=== PATIENT | male | born 1930 | race Caucasian/White ===

== ENCOUNTER 2019-05-17 21:15 | Observation (INO) ==
[2019-05-18] MEDS ORDERED: Naloxone 0.4 MG/ML INJ IVP PRN (03:29)
[2019-05-18 04:02] LABS: Basophils % 0.5 %; Eosinophils # 0.2 K/mcL (0.0-0.6); Eosinophils % 2.5 %; Hematocrit 32.4 % (37.5-50.1); Hemoglobin 11.1 g/dL (12.9-16.9); Immature Granulocytes % 0.3 % (0-4); Lymphocytes # 1.2 K/mcL (0.6-4.6); Lymphocytes % 20.6 %; Mean Corpuscular HGB Conc 34.3 g/dL (31.6-35.5); Mean Corpuscular Hemoglobin 30.1 pg (28.0-33.3); Mean Corpuscular Volume 87.8 fL (83.0-100.0); Mean Platelet Volume 10.7 fL (9.4-12.4); Monocytes # 0.7 K/mcL (0.0-1.3); Monocytes % 11.4 %; Neutrophils # 3.9 K/mcL (1.6-8.9); Platelet Count 189 K/mcL (140-400); Red Blood Count 3.69 M/mcL (4.19-5.50); Red Cell Distribution Width 12.6 % (11.5-14.5); Segmented Neutrophils % 64.7 %
[2019-05-18 04:10] LABS: Prothrombin Time 11.9 Seconds (9.4-12.1)
[2019-05-18 04:12] LABS: Activated Partial Thrombo Time 30.9 Seconds (26.0-36.0)
[2019-05-18 04:24] LABS: Alanine Aminotransferase 15 Units/L (7-52); Albumin 3.7 g/dL (3.5-5.7); Albumin/Globulin Ratio 1.8 (1.1-2.2); Alkaline Phosphatase 54 Units/L (34-104); Aspartate Amino Transferase 24 Units/L (13-39); BUN/Creatinine Ratio 20 (6-26); Bilirubin,Total 0.4 mg/dL (0.3-1.0); Blood Urea Nitrogen 18 mg/dL (8-23); Calcium 8.7 mg/dL (8.6-10.3); Carbon Dioxide 24 mEq/L (23-29); Chloride 106 mEq/L (98-107); Globulin 2.1 g/dL (2.4-3.5); Glucose 91 mg/dL (70-105); Magnesium 2.2 mg/dL (1.6-2.6); Osmolality,Calculated 289 (280-300); Potassium 3.5 mEq/L (3.5-5.1); Sodium 139 mEq/L (136-145); Total Protein 5.8 g/dL (6.4-8.9); eGFR For African Americans > 60 (> 60); eGFR For Non-African Americans > 60 (> 60)
[2019-05-18] MEDS ORDERED: Ondansetron 4 MG/2 ML VIAL IVP PRN (07:17)
[2019-05-18] MEDS ORDERED: Acetaminophen 325 MG TABLET PO PRN (07:17)
--- NOTE | 2019-05-18 07:31 | Internal Med History&Physical ---
Date of Encounter: 05/18/19 Time of Encounter: 07:21 Internal Medicine - H&P: HPI Chief complaint: Elevated trop Admitted From: Emergency Dept History of present illness: Eusebio Schumacher is an 88 M w hx HFpEF, HTN, HLD, PrCa s/p prostatectomy, who presented to cardiology appt after being referred for subacute progressive WHALEY and occasional dizziness with standing. As part of this workup, outpatient labs on 05/17 revealed a troponin of 0.06, unknown baseline but presumed to be normal, for which he was sent to local ED. At the time he received phone call for elevated troponin, he was shoveling in his yard without any chest pain or shortness of breath. Denies symptoms at present including no SOB, orthopnea, CP, N/V, diaphoresis, neck/jaw/shoulder/back pain, or increased edema. He does report that he's noticed fatigue over about the last 6 months, saying he feels like he has less energy, which he states has started to impact his ability to do all the activities he enjoys and work he does. Is able to walk stairs without difficulty. In the ED, vitals T 97, HR 60, RR 18, BP 120/60. CXR without acute process. 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 Labs remarkable only for persistent trop 0.06. Case discussed between ED and Cardio who rec'd xfer to [facility] for cardio consultation and potential stress test. TTE done in 01/2019 with moderate diastolic dysfunction, mild AoR, moderate AoS. PFTs done in 02/2019 were unremarkable. Past medical, surgical, social, and family histories reviewed and updated as below. Past Med Surg Social Fam HX - Past Medical History Medical history: cancer, hypertension Additional medical history: prostate CA Psychiatric history: no psych history - Past Surgical History Surgical History: prostatectomy, other Additional surgical history: cyst removed from spine - Social History Smoking Status: Former smoker Smokeless Tobacco Status: No Alcohol use: none Drug use: none - Family History Mother Living Status: Age at : 70 Hx Family Endocrine Disorder: Yes (dm) Sister Living Status: Age at : 75 Hx Family Endocrine Disorder: Yes (dm) Father Living Status: Age at : 60 Internal Medicine - H&P: Meds Ascorbate Calcium/Bioflavonoid [Lyric-C 1,000 mg Tablet] 1 each PO 05/17/19 [History] Calcium Carb, Citrate/Vit D3 [Calcium + D3 ER Tablet] 1 each PO 05/17/19 [History] Cholecalciferol (D-3) [Vitamin D] 1,000 unit PO DAILY 05/17/19 [History] Ferrous Sulfate [Iron] 325 mg PO 05/17/19 [History] Furosemide [Lasix] 20 mg PO DAILY 05/17/19 [History] Lisinopril-HCTZ 20-12.5 [Prinzide 20-12.5] 1 each PO 05/17/19 [History] Rosuvastatin Calcium [Crestor] 10 mg PO 05/17/19 [History] Allergy/AdvReac Type Severity Reaction Status Date / Time No Known Allergies Allergy Verified 09/27/18 18:36 All Systems PM: A 10-system review of systems was performed and is negative for pertinent findings except as documented above in the HPI. - Constitutional Vitals: Temp Pulse Resp BP Pulse Ox 97.9 F 61 17 122/65 96 05/18/19 04:02 05/18/19 04:02 05/18/19 04:02 05/18/19 04:02 05/18/19 04:02 Exam: General: NAD, AAOx3, good eye contact, well appearing, elderly Head: Atraumatic, normocephalic. Face symmetric Eyes: EOMI, sclerae anicteric ENT: Mucous membranes moist. Normal oral mucosa and dentition. Trachea midline. Thoracic: No visible chest wall deformities. Normal breath sounds b/l, no wheezing or crackles Cardio: regular rate and rhythm, does have obvious systolic murmur. Abdomen: Soft, nontender, nondistended Extremities: Warm, well perfused. DP pulses 2+ b/l. No clubbing, cyanosis. No edema Skin: Intact. No rashes, bruises, or ulcers Neuro: Awake, fully oriented. Good memory, concentration, attention. Speech fluent. CN II-XII grossly intact. Strength 5/5 in b/l UE and LE. Mild intention tremor noted RUE during handshake Internal Med - H&P Results - Labs CBC & Chem 7: 05/18/19 03:52 05/18/19 03:52 Labs: Short CBC 05/18/19 Range/Units 03:52 WBC 6.0 (4.3-11.1) K/mcL Hgb 11.1 L (12.9-16.9) g/dL Hct 32.4 L (37.5-50.1) % Plt Count 189 (140-400) K/mcL Neutrophils # 3.9 (1.6-8.9) K/mcL BMP 05/18/19 03:52 Sodium 139 Potassium 3.5 Chloride 106 Carbon Dioxide 24 BUN 18 Creatinine 0.89 Glucose 91 Calcium 8.7 Cardiac Enzymes 05/18/19 Range/Units 03:52 Troponin I 0.05 H* (< 0.04) ng/mL Liver Function 05/18/19 Range/Units 03:52 Total Bilirubin 0.4 (0.3-1.0) mg/dL AST 24 (13-39) Units/L ALT 15 (7-52) Units/L Alkaline Phosphatase 54 (34-104) Units/L Albumin 3.7 (3.5-5.7) g/dL - Summary of Assessment and Plan Summary of Assessment and Plan: Eusebio Schumacher is an 88 M w hx HFpEF, CAD, HTN, HLD, PrCa s/p prostatectomy, who p/w asymptomatic troponin elevation in context of subacute mild exertional dyspnea. Elevated troponin: ECG w/o acute changes, pt asymptomatic but does have risk factors for CAD and ECG suggests old infarct - tele - Cardio consult to direct further eval HFpEF: not overloaded, home lasix 20 HTN: controlled, holding home hctz/lisinopril until further eval per cardio HLD: home crestor PPx: ambulate Tele: yes Activity: ambulate FEN: NPO then cardiac eventually, no MIVF Lines: PIV Consults: Cardio Code: Full Dispo: obs for elevated trop, awaiting cardio consult, anticipate homegoing later today or tomorrow
--- NOTE | 2019-05-18 11:24 | Cardiology Consult Note ---
<Sheri Decker - Last Filed: 05/18/19 11:46> Date of Encounter: 05/18/19 Time of Encounter: 09:00 Assessment and Plan (1) Elevated troponin I level Current Visit: No Status: Acute Per cardiology: -Troponins 0.06 x2, 0.05 in the setting of moderate diastolic dysfunction, aortic stenosis. Unknown baseline troponins. -Denies chest pain, shortness of breath, fatigue. -ECG with no acute ischemic changes noted. -TTE 01/2019 with LVEF 60-65%, mild concentric LVH, moderate diastolic dysfunction, mild AR, moderate , mild-moderate MR, no SWMA. -Denies previous history of CAD. -Reports able to push mow grass, garden without symptoms. -Possible demand ischemia in the setting of diastolic dysfunction, aortic stenosis. -Will repeat TTE. -Discussed with patient regarding stress test, however patient wishes to complete in outpatient setting. -Further recommendations pending TTE. (2) Aortic stenosis Current Visit: Yes Status: Chronic Per cardiology: -Known moderate per TTE 01/2019. -Will repeat TTE. Qualifiers: Cardiac valve disease etiology: etiology unspecified Qualified Code(s): I35.0 - Nonrheumatic aortic (valve) stenosis Discussion w patient/family: The assessment and plan as outlined above was discussed with the patient who expressed understanding and agreement. All questions were answered. Thank you for involving us in the care of your patient. Please call with any questions. Discussed and reviewed with . History of Present Illness Consult date: 05/18/19 Requesting physician: Jose Resendez Consult reason: elevated troponin Chief complaint: abnormal labs History of present illness: Mr. Schumacher is a 88 year old male with a relevant past medical history of HLD, prostate cancer, who presented to [facility] with abnormal labs. 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 Patient states he was called with abnormal labs and recommended for ER evaluation. Patient denies symptoms. Denies chest pain. Denies shortness of breath or fatigue. States he was outside gardening when he was called with abnormal labs. Patient states two days ago, he push mowed his yard without symptoms. Patient denies current symptoms. Past Med Surg Social Fam HX - Past Medical History Attestation: Yes The following information was validated with the patient. Source: patient, old records reviewed Medical history: cancer, hypertension Additional medical history: prostate CA Psychiatric history: no psych history - Past Surgical History Surgical History: prostatectomy, other Additional surgical history: cyst removed from spine - Social History Smoking Status: Former smoker Smokeless Tobacco Status: No Alcohol use: none Drug use: none - Family History Mother Living Status: Age at : 70 Hx Family Endocrine Disorder: Yes (dm) Sister Living Status: Age at : 75 Hx Family Endocrine Disorder: Yes (dm) Father Living Status: Age at : 60 Medications and Allergies Ascorbate Calcium/Bioflavonoid [Lyric-C 1,000 mg Tablet] 1 each PO 05/17/19 [History] Calcium Carb, Citrate/Vit D3 [Calcium + D3 ER Tablet] 1 each PO 05/17/19 [History] Cholecalciferol (D-3) [Vitamin D] 1,000 unit PO DAILY 05/17/19 [History] Ferrous Sulfate [Iron] 325 mg PO 05/17/19 [History] Furosemide [Lasix] 20 mg PO DAILY 05/17/19 [History] Lisinopril-HCTZ 20-12.5 [Prinzide 20-12.5] 1 each PO 05/17/19 [History] Rosuvastatin Calcium [Crestor] 10 mg PO 05/17/19 [History] Allergy/AdvReac Type Severity Reaction Status Date / Time No Known Allergies Allergy Verified 09/27/18 18:36 All Systems Review: The remainder of the systems were reviewed and are negative - Cardiovascular Cardiovascular: as per HPI Physical Examination Vital Signs, Last 4 Hours Temp Pulse Resp BP Pulse Ox 05/18/19 08:06 97.7 F 66 18 123/76 97 General: Conversant, No Apparent Distress HEENT: Atraumatic, Normocephaly, Mucus Membranes Moist Neck: No JVD, Normal carotid pulses Cardiac: Reg Rate and Rhythm, Normal S1 and S2, Other (Systolic murmur noted. ) Lungs: Normal Breath Sounds, No Wheeze, Rales, Rhonchi Neuro: Alert and responsive, No focal deficits noted Abdomen: Soft, Non-Tender Skin: No rashes noted on visualized skin Musculoskeletal: No Chest Wall Tenderness Extremities: No Clubbing, No Cyanosis, No Edema, Normal Pulses Results 05/18/19 03:52 05/18/19 03:52 Lab Results Active Medications Acetaminophen (Tylenol) 650 mg PO Q6HR PRN PRN Reason: Mild Pain/Fever Stop: 11/17/19 07:18 Naloxone HCl (Narcan) 0.4 mg IVP Q2MPRN PRN PRN Reason: SEE COMMENTS Stop: 11/17/19 03:30 Ondansetron HCl (Zofran) 4 mg IVP Q8HR PRN PRN Reason: Nausea And Vomiting Stop: 11/17/19 07:18 Laboratory Tests 05/17/19 05/17/19 05/18/19 11:42 19:38 03:52 Hgb Creatinine Troponin I 0.06 H* 0.06 H* 0.05 H* 05/18/19 05/18/19 03:52 03:52 Hgb 11.1 L Creatinine 0.89 Troponin I - Imaging and Cardiology Chest Xray: report reviewed Echo: pending, report reviewed - EKG Interpretation EKG results cardiology: personally reviewed (ECG with SR, HR 61.), other (Telemetry reviewed with average HR previous 12 hours noted to be 60, SR. PVCs, PACs noted.) Consult Discharge Plan - Plan Referrals: NONE,PCP [Primary Care Provider] - <Concepción Ojeda - Last Filed: 05/18/19 12:51> Date of Encounter: 05/18/19 - Attending Attestation I examined this patient and my medical decision-making was reviewed with the [employer] MA[employer]. I agree with the documented findings, disposition and treatment plan as described. Assessment and Plan Discussion w patient/family: The assessment and plan as outlined above was discussed with the patient and/or family members who expressed understanding and agreement. All questions were answered. Thank you for involving us in the care of your patient. Please call with any questions. History of Present Illness History of present illness: Mr. Schumacher is a 88 year old male All Systems Review: The remainder of the systems were reviewed and are negative Physical Examination Vital Signs, Last 4 Hours Temp Pulse Resp BP Pulse Ox 05/18/19 12:37 98.0 F 75 18 108/56 96 Results 05/18/19 03:52 05/18/19 03:52 Lab Results 05/18/19 05/18/19 05/18/19 03:52 03:52 03:52 WBC 6.0 Hgb 11.1 L Hct 32.4 L Plt Count 189 INR 1.0 APTT 30.9 Sodium Potassium Chloride Carbon Dioxide BUN Creatinine Glucose Calcium Magnesium Total Bilirubin AST ALT Alkaline Phosphatase Troponin I 0.05 H* B-Natriuretic Peptide 05/18/19 05/18/19 03:52 03:52 WBC Hgb Hct Plt Count INR APTT Sodium 139 Potassium 3.5 Chloride 106 Carbon Dioxide 24 BUN 18 Creatinine 0.89 Glucose 91 Calcium 8.7 Magnesium 2.2 Total Bilirubin 0.4 AST 24 ALT 15 Alkaline Phosphatase 54 Troponin I B-Natriuretic Peptide 96
[2019-05-18] MEDS ORDERED: Aspirin Enteric Coated 81 MG Tablet PO SCH (11:55)
[2019-05-18 12:38] VITALS: BP 108/56
--- NOTE | 2019-05-18 14:14 | Discharge Summary ---
- NOTES TO OUTPATIENT PROVIDER Notes to Outpatient Provider: Declined inpatient stress; needs ordered as outpatient. New ASA 81. Date of Encounter: 05/18/19 Time of Encounter: 14:12 Hospital course: Dear Doctors, I recently had the opportunity to care for this patient during their recent hospital stay at [facility]. Eusebio Schumacher is an 88 M w hx HFpEF, HTN, HLD, PrCa s/p prostatectomy, who presented to cardiology appt after being referred for subacute progressive WHALEY and occasional dizziness with standing. As part of this workup, outpatient labs on 05/17 revealed a troponin of 0.06, unknown baseline but presumed to be normal, for which he was sent to local ED. At the time he received phone call for elevated troponin, he was shoveling in his yard without any chest pain or shortness of breath. Denies current symptoms other than 6 months of progressive fatigue. In the ED, vitals unremarkable, as were CXR and ECG. Trop downtrended to 0.05. Transferred to [place] for cardio consultation. Echo was unremarkable for new or acute process, and patient refused stress, instead wishing for it to be done as outpatient. Trop elevated likely as demand in setting of diastolic dysfunction or aortic stenosis. Dx: elevated troponin possibly 2/2 demand Pertinent tests/consults: TTE unchanged Follow up: needs stress test as outpatient Med changes: new ASA 81 daily Mental status: awake, fully oriented Code status: Full It has been my pleasure participating in this patient's care. Please contact me with any questions or concerns regarding their hospital stay. Sincerely, Jose Resendez MD - Discharge Medications Prescriptions: New Aspirin Enteric Coated [Aspirin EC] 81 mg PO DAILY #30 tablet.dr Continued Cholecalciferol (D-3) [Vitamin D] 1,000 unit PO DAILY Furosemide [Lasix] 20 mg PO DAILY Rosuvastatin Calcium [Crestor] 10 mg PO Lisinopril-HCTZ 20-12.5 [Prinzide 20-12.5] 1 each PO Ferrous Sulfate [Iron] 325 mg PO Calcium Carb, Citrate/Vit D3 [Calcium + D3 ER Tablet] 1 each PO Ascorbate Calcium/Bioflavonoid [Lyric-C 1,000 mg Tablet] 1 each PO Home Medications: Ascorbate Calcium/Bioflavonoid [Lyric-C 1,000 mg Tablet] 1 each PO 05/17/19 [History] Calcium Carb, Citrate/Vit D3 [Calcium + D3 ER Tablet] 1 each PO 05/17/19 [History] Cholecalciferol (D-3) [Vitamin D] 1,000 unit PO DAILY 05/17/19 [History] Ferrous Sulfate [Iron] 325 mg PO 05/17/19 [History] Furosemide [Lasix] 20 mg PO DAILY 05/17/19 [History] Lisinopril-HCTZ 20-12.5 [Prinzide 20-12.5] 1 each PO 05/17/19 [History] Rosuvastatin Calcium [Crestor] 10 mg PO 05/17/19 [History] Aspirin Enteric Coated [Aspirin EC] 81 mg PO DAILY #30 tablet. 05/18/19 [Rx] Allergies/Adverse Reactions: Allergy/AdvReac Type Severity Reaction Status Date / Time No Known Allergies Allergy Verified 09/27/18 18:36 Date of admission: 05/18/19 00:39 Primary care physician: PCP NONE Consults: 05/18/19 04:51 Consult to Cardiology [CONS] Routine Comment: Consulting Provider: Cardiology Margie Reason for Consult: Elevated troponin Call Completed: No - Constitutional Vitals: Temp Pulse Resp BP Pulse Ox 98.0 F 75 18 108/56 96 05/18/19 12:37 05/18/19 12:37 05/18/19 12:37 05/18/19 12:37 05/18/19 12:37 Exam: General: NAD, good eye contact, well appearing, elderly Thoracic: Normal breath sounds b/l, no wheezing or crackles Cardio: regular rate and rhythm, does have obvious systolic murmur. Abdomen: Soft, nontender, nondistended Extremities: Warm, well perfused. DP pulses 2+ b/l. No edema Skin: Intact. No rashes, bruises, or ulcers Neuro: Awake, fully oriented. Good memory, concentration, attention. Speech fluent. CN II-XII grossly intact. Strength 5/5 in b/l UE and LE. Mild intention tremor noted RUE during handshake - Patient Status Disposition: Home, Self-Care Condition: Fair Functional capacity at discharge: independent ambulation Overall status at discharge: patient is not back to baseline - Discharge Instructions Follow Up With: Mike Mondragon MD [Partnered Physician] - 07/13/19 9:30 am Concepción Ojeda DO [Partnered Physician] - (1-2 weeks) - Diet and Activity Activity: increase activity as tolerated Diet: advance to your usual diet
--- NOTE | 2019-05-18 15:16 | Event Note ---
Date of Encounter: 05/18/19 Time of Encounter: 15:14 - Cardiology Event Note TTE resulted with LVEF preserved, no wall motion abnormalities noted. Severe noted per TTE. Discussed and reviewed with patient, who has elected for outpatient work up for TAVR evaluation. Troponins demand ischemia, no cardiac rehab consult warranted. Cardiology will sign off, will arrange close outpatient follow up. Discussed and reviewed with .
== END 2019-05-18 16:26 | disposition home or self-care (01) ==
LOC: 3BNU → SUATTDRO 05-18 00:39
PROVIDERS: ADMIT Internal Medicine; ATTEND Internal Medicine